=== PATIENT | male | born 1985 | race Two or more races ===

== ENCOUNTER 2019-11-28 22:12 | Emergency (ER) | payer MEDICAID ==
[~2019-11-28] VITALS: Ht 167.6 cm; Wt 170.6 kg
[2019-11-28] MEDS ORDERED: cloNIDine HCL 0.1 MG TAB ONE (22:29)
[2019-11-28] MEDS ORDERED: cloNIDine HCL 0.1 MG TAB PO ONE ×2 (22:45→23:30)
[2019-11-28 23:30] VITALS: BP 186/123
[2019-11-28] MEDS ORDERED: MORPHINE SULFATE 4 MG/ML SYR/VIAL IM ONE (23:30)
[2019-11-28] MEDS ORDERED: ONDANSETRON ODT 4 MG TAB PO ONE (23:30)
[2019-11-29] MEDS ORDERED: HYDROmorphone HCL 2 MG/ML VL IM ONE ×2 (00:15)
== END 2019-11-29 00:25 | disposition home or self-care (01) ==
LOC: ER 22:25
DX: G89.18 Other acute postprocedural pain (principal); M25.511 Pain in right shoulder; I16.0 Hypertensive urgency; Z98.890 Other specified postprocedural states
CPT/HCPCS: 73030; 96372; 99284; J1170; J2270; Q0162